=== PATIENT | female | born 1935 | race Two or more races ===

== ENCOUNTER 2023-03-11 16:23 | Inpatient (IN) | payer OTHER ==
[~2023-03-11] VITALS: Ht 154.9 cm; Wt 44.5 kg
[2023-03-11] MEDS ORDERED: SYNTHROID75 MCG PO (16:37)
[2023-03-11] MEDS ORDERED: LISINOPRIL10 MG PO (16:38)
[2023-03-11] MEDS ORDERED: HUMALOG100 UNIT/1 (16:38)
[2023-03-11] MEDS ORDERED: SIMVASTATIN5 MG PO (16:38)
[2023-03-11 17:08] LABS: HEMATOCRIT 32.9 % (36.0-45.00); HEMOGLOBIN 11.2 g/dL (12.0-15.00); MEAN CELL VOLUME 94.8 fL (80.00-100.00); MEAN CORPUSCULAR HEMOGLOBIN 32.2 pg (27.00-32.0); PLATELET COUNT 475 K/uL (150-450); RED BLOOD COUNT 3.46 M/uL (4.00-6.00); RED CELL DISTRIBUTION WIDTH 15.7 % (11.5-14.5)
[2023-03-11 17:43] LABS: ABG PH 7.459 (7.35-7.45); ABG PO2 93.7 mmHg (80-100); ABG pCO2 29.4 mmHg (35-45); SaO2 97.7 %
[2023-03-11 17:44] LABS: BASE EXCESS -2.7 mmol/l; BICARBONATE 20.4 mmol/l (23-25); Tco2 21.3 mmol/l; allen test SATISFACTORY; o2 21 %; puncture site RADIAL LEFT
[2023-03-11 18:40] LABS: PH,URINE 5.5; URINE BILIRRUBIN NEGATIVE (NEGATIVE); URINE BLOOD SMALL; URINE GLUCOSE NEGATIVE (NEGATIVE); URINE LEUKOCYTE TRACE; URINE NITRATE NEGATIVE; URINE UROBILINOGEN 0.2 E.U./dl
[2023-03-11 18:57] LABS: URINE APPEARANCE TURBID; URINE COLOR YELLOW; URINE EPITHELIAL CELLS 0-4 /HPF; URINE PROTEIN 100 (NEGATIVE); URINE WBC LOADED /hpf
[2023-03-11 18:58] LABS: URINE BACTERIA MANY
[2023-03-11 20:38] LABS: CALCIUM 10.6 mg/dL (8.5-10.1); CREATININE SERUM 2.46 mg/dL (0.55-1.02); GFR 18.6; POTASSIUM 5.61 mEq/L (3.5-5.1)
[2023-03-12 02:33] LABS: INR 0.98; PROTHROMBIN TIME 10.3 SECONDS (9.0-11.5)
[2023-03-12] MEDS ORDERED: INSULIN GL100 UNIT/1 (08:10)
[2023-03-12] MEDS ORDERED: SYNTHROID100 MCG (08:10)
[2023-03-12] MEDS ORDERED: DILTIAZEM HCL60 MG (08:10)
[2023-03-12] MEDS ORDERED: LISINOPRIL2.5 MG (08:10)
[2023-03-12] MEDS ORDERED: CILOSTAZOL50 MG (08:10)
[2023-03-12] MEDS ORDERED: FOLIC ACID1 MG (08:10)
[2023-03-12] MEDS ORDERED: METFORMIN HCL500 M4 (08:11)
[2023-03-12 13:28] LABS: HEMATOCRIT 30.6 % (36.0-45.00); HEMOGLOBIN 10.4 g/dL (12.0-15.00); MEAN CELL VOLUME 96.9 fL (80.00-100.00); MEAN CORPUSCULAR HEMOGLOBIN 32.8 pg (27.00-32.0); MEAN CORPUSCULAR HGB CONC 33.8 g/dl (32.0-36.0); PLATELET COUNT 417 K/uL (150-450); RED BLOOD COUNT 3.16 M/uL (4.00-6.00); RED CELL DISTRIBUTION WIDTH 15.6 % (11.5-14.5)
[2023-03-12 14:13] LABS: CALCIUM 9.8 mg/dL (8.5-10.1); CREATININE SERUM 1.84 mg/dL (0.55-1.02); GFR 26.01; POTASSIUM 4.68 mEq/L (3.5-5.1)
[2023-03-12 14:51] LABS: T4 FREE 1.79 NG/ML (0.76-1.46); TSH 0.013 uIU/mL (0.358-3.74)
[2023-03-13 06:24] LABS: HEMATOCRIT 26.7 % (36.0-45.00); HEMOGLOBIN 9.2 g/dL (12.0-15.00); MEAN CELL VOLUME 94.5 fL (80.00-100.00); MEAN CORPUSCULAR HEMOGLOBIN 32.5 pg (27.00-32.0); MEAN CORPUSCULAR HGB CONC 34.4 g/dl (32.0-36.0); PLATELET COUNT 397 K/uL (150-450); RED BLOOD COUNT 2.83 M/uL (4.00-6.00); RED CELL DISTRIBUTION WIDTH 15.9 % (11.5-14.5)
[2023-03-13 07:08] LABS: BILIRUBIN TOTAL 0.24 mg/dL (0.3-1.2); CREATININE SERUM 1.75 mg/dL (0.55-1.02); GFR 27.56; GLOBULINA 3.3 G/DL (2.4-3.5); MAGNESIUM 1.5 mg/dL (1.8-2.4); PHOSPHOROUS 2.6 mg/dL (2.5-4.9); POTASSIUM 4.02 mEq/L (3.5-5.1); TOTAL PROTEIN 6.3 gm/dL (6.4-8.2)
[2023-03-13 22:12] LABS: ALBUMIN 2.7 gm/dL (3.4-5.0); BILIRUBIN TOTAL 0.29 mg/dL (0.3-1.2); CALCIUM 8.7 mg/dL (8.5-10.1); CREATININE SERUM 1.49 mg/dL (0.55-1.02); GFR 33.18; POTASSIUM 3.28 mEq/L (3.5-5.1); TOTAL PROTEIN 5.7 gm/dL (6.4-8.2)
[2023-03-14 07:12] LABS: T4 TOTAL 7.01 UG/DL (4.8-13.9)
[2023-03-14 07:13] LABS: TSH 0.006 uIU/mL (0.358-3.74)
[2023-03-15 05:35] LABS: MEAN CELL VOLUME 95.8 fL (80.00-100.00); MEAN CORPUSCULAR HGB CONC 34.2 g/dl (32.0-36.0); PLATELET COUNT 383 K/uL (150-450); RED CELL DISTRIBUTION WIDTH 15.9 % (11.5-14.5)
[2023-03-15 05:37] LABS: HEMOGLOBIN 8.2 g/dL (12.0-15.00); MEAN CORPUSCULAR HEMOGLOBIN 32.8 pg (27.00-32.0)
[2023-03-15 05:56] LABS: ALBUMIN 2.6 gm/dL (3.4-5.0); BILIRUBIN TOTAL 0.29 mg/dL (0.3-1.2); CALCIUM 8.1 mg/dL (8.5-10.1); CREATININE SERUM 1.12 mg/dL (0.55-1.02); GFR 46.12; GLOBULINA 3.1 G/DL (2.4-3.5); POTASSIUM 3.84 mEq/L (3.5-5.1); TOTAL PROTEIN 5.7 gm/dL (6.4-8.2)
[2023-03-16 11:10] LABS: HEMATOCRIT 30.5 % (36.0-45.00); HEMOGLOBIN 10.2 g/dL (12.0-15.00); MEAN CELL VOLUME 93.3 fL (80.00-100.00); MEAN CORPUSCULAR HEMOGLOBIN 31.3 pg (27.00-32.0); MEAN CORPUSCULAR HGB CONC 33.6 g/dl (32.0-36.0); PLATELET COUNT 398 K/uL (150-450); RED BLOOD COUNT 3.27 M/uL (4.00-6.00); RED CELL DISTRIBUTION WIDTH 17.5 % (11.5-14.5)
[2023-03-16 11:35] LABS: ALBUMIN 2.7 gm/dL (3.4-5.0); BILIRUBIN TOTAL 0.33 mg/dL (0.3-1.2); CALCIUM 7.7 mg/dL (8.5-10.1); CREATININE SERUM 1.15 mg/dL (0.55-1.02); GFR 44.74; GLOBULINA 3.4 G/DL (2.4-3.5); POTASSIUM 3.62 mEq/L (3.5-5.1); TOTAL PROTEIN 6.1 gm/dL (6.4-8.2)
[2023-03-17 11:49] LABS: HEMOGLOBIN 12.9 g/dL (12.0-15.00); MEAN CORPUSCULAR HEMOGLOBIN 30.4 pg (27.00-32.0); PLATELET COUNT 325 K/uL (150-450); RED BLOOD COUNT 4.24 M/uL (4.00-6.00); RED CELL DISTRIBUTION WIDTH 16.7 % (11.5-14.5)
[2023-03-18 06:34] LABS: CALCIUM 7.2 mg/dL (8.5-10.1); CREATININE SERUM 0.8 mg/dL (0.55-1.02); GFR 68.01; POTASSIUM 3.63 mEq/L (3.5-5.1)
[2023-03-18 07:46] LABS: URINE APPEARANCE Turbid; URINE BILIRRUBIN Negative (NEGATIVE); URINE BLOOD Moderate; URINE COLOR Yellow; URINE LEUKOCYTE Large; URINE NITRATE Negative; URINE UROBILINOGEN 0.2 E.U./dl
[2023-03-18 07:48] LABS: URINE BACTERIA 2149.5 uL (0.0-1933); URINE EPITHELIAL CELLS 23.3 uL (0.0-38.8); URINE RBC 207.2 uL (0.0-20.8); URINE WBC 2941.6 uL (0.0-23.2)
[2023-03-18 07:57] LABS: MAGNESIUM 1.2 mg/dL (1.8-2.4)
[2023-03-18 08:10] LABS: HEMATOCRIT 35.1 % (36.0-45.00); HEMOGLOBIN 11.9 g/dL (12.0-15.00); MEAN CORPUSCULAR HEMOGLOBIN 31.5 pg (27.00-32.0); MEAN CORPUSCULAR HGB CONC 33.9 g/dl (32.0-36.0); RED BLOOD COUNT 3.78 M/uL (4.00-6.00); RED CELL DISTRIBUTION WIDTH 16.4 % (11.5-14.5)
[2023-03-18 08:35] LABS: URINE CRYSTALS NEGATIVE /HPF; URINE GLUCOSE 500 MG/DL (NEGATIVE); URINE MUCUS MODERATE; URINE PROTEIN 100 (NEGATIVE); URINE YEAST MANY /hpf
[2023-03-18 09:56] LABS: PLATELET COUNT 277 K/uL (150-450)
[2023-03-19] MEDS ORDERED: CHOLESTYRAMINE L4 GM PO (11:56)
[2023-03-19] MEDS ORDERED: LISINOPRIL2.5 MG PO (11:56)
[2023-03-19] MEDS ORDERED: CARDIZEM60 MG PO (11:56)
[2023-03-19] MEDS ORDERED: LEVOTHYROXINE88 MCG PO (11:57)
[2023-03-19] MEDS ORDERED: SIMVASTATIN20 MG PO (11:57)
[2023-03-19] MEDS ORDERED: GABAPENTIN100 MG PO (11:57)
[2023-03-19] MEDS ORDERED: FERROUS SULFATE PO (11:58)
[2023-03-19] MEDS ORDERED: FLUCONAZOLE100 MG PO (12:01)
== END 2023-03-19 16:16 | disposition home or self-care (01) | DRG 872 ==
LOC: ER 16:23 → MEDJ 23:19
PROVIDERS: General Practice; Internal Medicine; Internal Medicine Endocrinology, Diabetes & Metabolism; Internal Medicine Infectious Disease; ADMIT Internal Medicine; ATTEND Internal Medicine
PROC: 0T9B70Z Drainage of Bladder with Drainage Device, Via Natural or Artificial Opening (ICD-10-PCS; principal; 2023-03-11)
PROC: BT43ZZZ Ultrasonography of Bilateral Kidneys (ICD-10-PCS; 2023-03-12)
PROC: 0T2BX0Z Change Drainage Device in Bladder, External Approach (ICD-10-PCS; 2023-03-15)
PROC: 30233N1 Transfusion of Nonautologous Red Blood Cells into Peripheral Vein, Percutaneous Approach (ICD-10-PCS; 2023-03-16)
PROC: 3E0G76Z Introduction of Nutritional Substance into Upper GI, Via Natural or Artificial Opening (ICD-10-PCS; 2023-03-16)
PROC: BW4GZZZ Ultrasonography of Pelvic Region (ICD-10-PCS; 2023-03-17)
PROC: BW4GZZZ Ultrasonography of Pelvic Region (ICD-10-PCS; 2023-03-18)
PROC: 0TPBX0Z Removal of Drainage Device from Bladder, External Approach (ICD-10-PCS; 2023-03-19)
DX: A41.9 Sepsis, unspecified organism (principal); B37.49 Other urogenital candidiasis; N17.9 Acute kidney failure, unspecified; E11.65 Type 2 diabetes mellitus with hyperglycemia; N32.89 Other specified disorders of bladder; D64.89 Other specified anemias; E07.81 Sick-euthyroid syndrome; E86.0 Dehydration; R13.19 Other dysphagia; I12.9 Hypertensive chronic kidney disease with stage 1 through stage 4 chronic kidney disease, or unspecified chronic kidney disease; E11.22 Type 2 diabetes mellitus with diabetic chronic kidney disease; N18.9 Chronic kidney disease, unspecified; F02.80 Dementia in other diseases classified elsewhere, unspecified severity, without behavioral disturbance, psychotic disturbance, mood disturbance, and anxiety; E03.9 Hypothyroidism, unspecified; Z79.4 Long term (current) use of insulin; Z74.01 Bed confinement status; Z79.84 Long term (current) use of oral hypoglycemic drugs